=== PATIENT | female | born 1955 | race Caucasian/White ===

== ENCOUNTER 2016-08-25 17:04 | Emergency (ER) | payer BC ==
[~2016-08-25] VITALS: Ht 160 cm; Wt 83.2 kg
[~2016-08-25 17:04] MED LIST: ASPIR-LOW81 MG PO; ASPIRIN 81M81 MG/TA2 PO; ASPIRIN E.C. 8181 MG PO; CHANTIX0.5 MG; CIPRO 250MG TA250 MG PO; CLARITIN 1010 MG/TAB PO; EFFEXOR; EFFEXOR XR75 MG/CAP PO; ENTOCORT EC3 MG PO; FLOMAX 0.40.4 MG/CAP PO; HCTZ; LISINOPRIL30 MG PO; PERCOCET 5/321 UDTAB PO; PHENERGAN 25 TA25 MG PO; PRINZIDE 25 MG-1 TAB PO; PROTONIX 40MG T40 MG PO; TOPROL XL 50MG50 MG PO; ULORIC80 MG PO; ZOCOR 20MG20 MG PO
[2016-08-25 17:06] VITALS: TEMP 98.8
[2016-08-25 18:05] LABS: BASO % 0.2 % (0.0-2.0); EOS # 0.3 (0.0-0.7); GRAN # 5.8 (1.4-6.5); GRAN % 62.8 % (42.2-75.2); HEMATOCRIT 38.4 % (37.0-47.0); HEMOGLOBIN 12.5 g/dl (12.5-16.0); LYMPH # 2.7 (1.2-3.4); LYMPH % 28.9 % (20.0-51.0); MEAN CELL VOLUME 96 fl (80.0-100.0); MEAN CORPUSCULAR HEMOGLOBIN 31 pg (27.0-31.0); MEAN CORPUSCULAR HGB CONC 33 g/dl (33.0-37.0); MEAN PLATELET VOLUME 11.3 fl (7.4-10.4); MONO # 0.4 (0.1-0.6); MONO % 4.8 % (1.7-9.3); PLATELET COUNT 285 K/mm3 (130-400); REDCELL DISTRIBUTION WIDTH-CV 13.1 % (11.5-14.5); WHITE BLOOD COUNT 9.2 K/mm3 (4.8-10.8)
[2016-08-25] MEDS ORDERED: ZOCOR 20MG20 MG PO (18:41)
[2016-08-25] MEDS ORDERED: VITAMIN D32000 IU PO (18:41)
[2016-08-25] MEDS ORDERED: B-12 100 MCG PO (18:42)
[2016-08-25] MEDS ORDERED: DESYREL 100MG100 MG PO (18:43)
[2016-08-25] MEDS ORDERED: PROTONIX 40MG T40 MG PO (18:44)
[2016-08-25 19:17] LABS: ADJUSTED CALCIUM 11.5 mg/dL (8.4-10.2); ALANINE AMINOTRANSFERASE 69 U/L (9-52); ALBUMIN 4.2 gm/dL (3.5-5.0); ALKALINE PHOSPHATASE 68 U/L (50-136); ANION GAP 12 mmol/L (7-16); BILIRUBIN,TOTAL 0.8 mg/dL (0.0-1.0); BLOOD UREA NITROGEN 24 mg/dL (7-17); CALCIUM 11.7 mg/dL (8.4-10.2); CARBON DIOXIDE 29 mmol/L (22-30); CHLORIDE 99 mmol/L (98-107); CREATININE, serum 0.94 mg/dL (0.52-1.25); GLUCOSE 114 mg/dL (74-106); LIPASE 463 U/L (23-300); POTASSIUM 4.2 mmol/L (3.4-5.0); SODIUM 140 mmol/L (137-145); TOTAL PROTEIN 7.7 gm/dL (6.4-8.2)
[2016-08-25 19:28] LABS: TROPONIN-I < 0.012 ng/mL (0.000-0.034)
[2016-08-25] MEDS ORDERED: PRIL40 PO (20:08)
[2016-08-25] MEDS ORDERED: ULTRAM 50MG TAB50 MG PO (20:10)
[2016-08-25 20:26] VITALS: BP 106/69; PULSE 87
== END 2016-08-25 20:51 | disposition home or self-care (01) ==
LOC: COL.ER 17:04
PROVIDERS: Emergency Medicine
DX: R07.9 Chest pain, unspecified (principal); I10 Essential (primary) hypertension; R06.02 Shortness of breath
CPT/HCPCS: C9113; J1885

== ENCOUNTER 2016-09-15 12:59 | Outpatient (CLI) | payer BC ==
[~2016-09-15] VITALS: Ht 160 cm; Wt 80.9 kg
[~2016-09-15 12:59] MED LIST changes: +B-12 100 MCG PO; +DESYREL 100MG100 MG PO; +PRIL40 PO; +ULTRAM 50MG TAB50 MG PO; +VITAMIN D32000 IU PO
[2016-09-15 13:36] VITALS: BP 97/65; PULSE 76; TEMP 97.7
[2016-09-15 13:44] LABS: BASO % 0.2 % (0.0-2.0); EOS # 0.1 (0.0-0.7); EOS % 0.7 % (0-4.0); GRAN # 6.1 (1.4-6.5); GRAN % 67.8 % (42.2-75.2); HEMOGLOBIN 12.6 g/dl (12.5-16.0); LYMPH # 2.3 (1.2-3.4); LYMPH % 25.2 % (20.0-51.0); MEAN CELL VOLUME 95 fl (80.0-100.0); MEAN CORPUSCULAR HEMOGLOBIN 31 pg (27.0-31.0); MEAN CORPUSCULAR HGB CONC 32 g/dl (33.0-37.0); MEAN PLATELET VOLUME 11.4 fl (7.4-10.4); MONO # 0.5 (0.1-0.6); MONO % 5.4 % (1.7-9.3); PLATELET COUNT 271 K/mm3 (130-400); RED BLOOD COUNT 4.12 M/mm3 (4.10-5.30); REDCELL DISTRIBUTION WIDTH-CV 12.9 % (11.5-14.5); WHITE BLOOD COUNT 9.1 K/mm3 (4.8-10.8)
[2016-09-15 13:53] LABS: ADJUSTED CALCIUM 9.7 mg/dL (8.4-10.2); ALANINE AMINOTRANSFERASE 70 U/L (9-52); ALBUMIN 4.3 gm/dL (3.5-5.0); ALKALINE PHOSPHATASE 74 U/L (50-136); ANION GAP 13 mmol/L (7-16); BILIRUBIN,TOTAL 0.8 mg/dL (0.0-1.0); BLOOD UREA NITROGEN 40 mg/dL (7-17); CALCIUM 9.9 mg/dL (8.4-10.2); CARBON DIOXIDE 25 mmol/L (22-30); CHLORIDE 103 mmol/L (98-107); CREATININE, serum 1.32 mg/dL (0.52-1.25); GLUCOSE 92 mg/dL (74-106); MAGNESIUM 1.6 mg/dL (1.6-2.3); SODIUM 140 mmol/L (137-145); TOTAL PROTEIN 7.8 gm/dL (6.4-8.2)
[2016-09-15 14:05] LABS: TROPONIN-I < 0.012 ng/mL (0.000-0.034)
[2016-09-15 14:32] VITALS: BP 96/53; PULSE 72; TEMP 97.7
[2016-09-15 15:34] VITALS: BP 107/64; PULSE 76; TEMP 97.6
[2016-09-15 16:09] VITALS: BP 107/57; PULSE 76; TEMP 97.2
[2016-09-15 17:10] VITALS: BP 107/62; PULSE 76; TEMP 97.9
[2016-09-15 18:20] VITALS: BP 113/67; PULSE 76; TEMP 97.8
== END 2016-09-15 18:53 | disposition home or self-care (01) ==
LOC: EUO 12:59
PROVIDERS: Internal Medicine
DX: I95.89 Other hypotension (principal); R19.7 Diarrhea, unspecified
CPT/HCPCS: J7030

== ENCOUNTER → 2016-09-21 | Outpatient (CLI) | payer BC | LOC: COL.RAD 08:15 | DX: K21.9 Gastro-esophageal reflux disease without esophagitis (principal); R12 Heartburn; R07.89 Other chest pain; K22.70 Barrett's esophagus without dysplasia | CPT/HCPCS: A9541 ==

== ENCOUNTER → 2017-03-15 | Outpatient (CLI) | payer BC | LOC: MC.RAD 11:37 | DX: Z12.31 Encounter for screening mammogram for malignant neoplasm of breast (principal) ==

== ENCOUNTER → 2018-03-28 | Outpatient (CLI) | payer BC | LOC: COL.RAD 09:34 | DX: K76.0 Fatty (change of) liver, not elsewhere classified (principal) ==

== ENCOUNTER → 2018-05-04 | Outpatient (CLI) | payer BC | LOC: MC.RAD 13:34 | DX: Z12.31 Encounter for screening mammogram for malignant neoplasm of breast (principal) ==

== ENCOUNTER → 2019-05-08 | Outpatient (CLI) | payer OTHER | LOC: MC.RAD 11:30 | DX: Z12.31 Encounter for screening mammogram for malignant neoplasm of breast (principal) ==

== ENCOUNTER → 2019-08-14 | Outpatient (CLI) | payer OTHER ==
[2019-08-14 13:49] LABS: BASO % 0.1 % (0.0-2.0); EOS # 0.2 (0.0-0.7); EOS % 1.5 % (0-4.0); GRAN # 7.6 (1.4-6.5); GRAN % 68.7 % (42.2-75.2); HEMATOCRIT 40.1 % (37.0-47.0); HEMOGLOBIN 13.1 g/dl (12.5-16.0); LYMPH # 2.6 (1.2-3.4); LYMPH % 23.7 % (20.0-51.0); MEAN CELL VOLUME 97 fl (80.0-100.0); MEAN CORPUSCULAR HEMOGLOBIN 32 pg (27.0-31.0); MEAN CORPUSCULAR HGB CONC 33 g/dl (33.0-37.0); MEAN PLATELET VOLUME 10.9 fl (7.4-10.4); MONO # 0.6 (0.1-0.6); MONO % 5.4 % (1.7-9.3); PLATELET COUNT 253 K/mm3 (130-400); RED BLOOD COUNT 4.12 M/mm3 (4.10-5.30); REDCELL DISTRIBUTION WIDTH-CV 12.6 % (11.5-14.5)
[2019-08-14 14:00] LABS: ALANINE AMINOTRANSFERASE 20 U/L (9-52); ALBUMIN 4.5 gm/dL (3.5-5.0); ALKALINE PHOSPHATASE 71 U/L (50-136); ANION GAP 10 mmol/L (7-16); AST,SGOT 26 U/L (15-37); BILIRUBIN,TOTAL 0.5 mg/dL (0.0-1.0); BLOOD UREA NITROGEN 30 mg/dL (7-17); CALCIUM 9.8 mg/dL (8.4-10.2); CARBON DIOXIDE 29 mmol/L (22-30); CHLORIDE 101 mmol/L (98-107); CREATININE, serum 0.92 (0.52-1.25); GLUCOSE 106 mg/dL (74-106); POTASSIUM 3.6 mmol/L (3.4-5.0); SODIUM 140 mmol/L (137-145); TOTAL PROTEIN 7.9 gm/dL (6.4-8.2)
[2019-08-14 14:13] LABS: TROPONIN-I < 0.012 ng/mL (0.000-0.035)
== END ==
LOC: COL.RAD 12:49
PROVIDERS: Internal Medicine
DX: R00.0 Tachycardia, unspecified (principal)

== ENCOUNTER → 2020-05-14 | Outpatient (CLI) | payer MEDICARE, BC | LOC: MC.RAD 10:55 | DX: Z12.31 Encounter for screening mammogram for malignant neoplasm of breast (principal); Z78.0 Asymptomatic menopausal state ==

== ENCOUNTER 2021-02-21 22:22 | Emergency (ER) | payer MEDICARE, BC ==
[~2021-02-21] VITALS: Ht 162.6 cm; Wt 76.8 kg
[2021-02-21 22:55] VITALS: TEMP 98.3
[2021-02-21] MEDS ORDERED: CEPHALEXIN500 M1 PO (23:52)
[2021-02-22 00:20] VITALS: BP 110/68; PULSE 68
== END 2021-02-22 00:29 | disposition home or self-care (01) ==
LOC: COL.ER 22:22
DX: S81.811A Laceration without foreign body, right lower leg, initial encounter (principal); I10 Essential (primary) hypertension; I25.2 Old myocardial infarction; Z79.899 Other long term (current) drug therapy; W54.8XXA Other contact with dog, initial encounter

== ENCOUNTER → 2021-03-04 | Outpatient (CLI) | payer MEDICARE, BC ==
[~2021-03-04] MED LIST changes: +CEPHALEXIN500 M1 PO
[2021-03-04 10:17] VITALS: BP 115/76; PULSE 79
== END ==
LOC: COL.ER 10:11
DX: Z48.02 Encounter for removal of sutures (principal)

== ENCOUNTER 2021-06-04 19:20 | Emergency (ER) | payer MEDICARE, BC ==
[~2021-06-04] VITALS: Ht 160 cm; Wt 76.4 kg
[2021-06-04 19:23] VITALS: TEMP 99.1
[2021-06-04] MEDS ORDERED: CEPHALEXIN500 M1 PO (20:15)
[2021-06-04 20:25] VITALS: BP 110/76; PULSE 81
== END 2021-06-04 20:25 | disposition home or self-care (01) ==
LOC: COL.ER 19:20
DX: S81.811A Laceration without foreign body, right lower leg, initial encounter (principal); I10 Essential (primary) hypertension; I21.4 Non-ST elevation (NSTEMI) myocardial infarction; Z88.1 Allergy status to other antibiotic agents; Z88.2 Allergy status to sulfonamides; Z79.82 Long term (current) use of aspirin; Z79.899 Other long term (current) drug therapy; W22.8XXA Striking against or struck by other objects, initial encounter; Y93.01 Activity, walking, marching and hiking

== ENCOUNTER → 2021-06-24 | Outpatient (CLI) | payer MEDICARE, BC | LOC: MC.RAD 05-20 10:30 | DX: Z12.31 Encounter for screening mammogram for malignant neoplasm of breast (principal) ==

== ENCOUNTER 2021-07-10 12:34 | Emergency (ER) | payer MEDICARE, BC ==
[~2021-07-10] VITALS: Ht 160 cm; Wt 76.4 kg
[2021-07-10 12:55] VITALS: BP 127/90; PULSE 79; TEMP 98.1
== END 2021-07-10 15:55 | disposition home or self-care (01) ==
LOC: COL.ER 12:34
DX: S51.812A Laceration without foreign body of left forearm, initial encounter (principal); W01.0XXA Fall on same level from slipping, tripping and stumbling without subsequent striking against object, initial encounter